=== PATIENT | male | born 1995 | race Caucasian/White ===

== ENCOUNTER 2020-08-24 15:34 | Inpatient (IN) | payer BC, SELFPAY ==
--- NOTE | ~2020-08-24 | CT_ITS ---
EXAMINATION: CT ABDOMEN AND PELVIS WITH CONTRAST CLINICAL INFORMATION: RLQ pain, r/o appy COMPARISON: None. TECHNIQUE: Multidetector volumetric imaging was performed from the superior aspect of the liver through the pubic symphysis following administration of 85 cc of Omnipaque 350 intravenous contrast Sagittal and coronal reformatted images were obtained on the technologist workstation.. This CT examination was performed using dose optimization techniques as appropriate, variously including the following: *Automated exposure control *Adjustment of mA and/or kV according to patient size (this includes techniques or standardized protocols for targeted exams where dose is matched to indication/reason for exam; i.e. extremities or head) *Use of iterative reconstruction technique DLP: 539 mGy-cm FINDINGS: LUNG BASES: The visualized lung bases are unremarkable. LIVER, GALLBLADDER, AND BILIARY TREE: The liver is normal in size, shape, and attenuation. No focal hepatic lesion or biliary ductal dilatation is present. The gallbladder is unremarkable with no evidence of radiopaque gallstones, gallbladder wall thickening, or obvious pericholecystic inflammatory changes. PANCREAS: Unremarkable. SPLEEN: Mildly enlarged measuring 13.6 in meters in length ADRENAL GLANDS: Unremarkable. KIDNEYS AND URETERS: The kidneys are normal in size, shape, and attenuation. No hydronephrosis, hydroureter, or calculi seen. No perinephric stranding. BLADDER: Unremarkable. GASTROINTESTINAL TRACT: Colon is mostly decompressed. There is significant focal inflammatory changes in the right lower quadrant surrounding a dilated appendix measuring up to 1.5 cm in diameter. There is associated edema at the appendiceal orifice as well. I do not appreciate any obvious appendicolith. There is significant surrounding fluid but none discrete tear. Perforated appendicitis would be suspected. ABDOMINAL WALL: No significant hernia is appreciated. LYMPHOVASCULAR STRUCTURES: No lymphadenopathy. The aorta is unremarkable. PELVIC VISCERA: Unremarkable. OSSEOUS STRUCTURES: Unremarkable. CT/CT abdomen pelvis w con IMPRESSION: Dilated appendix with significant surrounding inflammatory changes and fluid most consistent with acute appendicitis. With this amount of fluid, perforated appendicitis would be suspected. I do not appreciate any adjacent free air or obvious appendicolith.
[2020-08-24 15:46] VITALS: BP 150/101; PULSE 110; RESP 18; TEMP 36.8; O2SAT 98; BMI 25.7
[2020-08-24 16:20] LABS: MANUAL DIFF FLAG NO
[2020-08-24 16:22] LABS: Basophils Absolute Auto 0.1 X10*3/uL (0.0-0.2); Basophils Percent Auto 0.3 % (0-2); Eosinophils Percent Auto 0.1 % (0-4); Hematocrit 48.7 % (42-52); Hemoglobin 16.9 g/dl (14.0-18.0); Imm Gran Abs Auto 0.05 X10*3/uL (0.00-0.03); Imm Gran Pct Auto 0.3 % (0.0-0.4); Lymphocytes Absolute Auto 1.6 X10*3/uL (1.2-4.9); Lymphocytes Percent Auto 9.3 % (20-40); Mean Corpuscular HGB Conc 34.7 g/dl (31.0-36.0); Mean Corpuscular Hemoglobin 30.7 pg (27.0-33.0); Mean Corpuscular Volume 88.4 fL (80-98); Mean Platelet Volume 9.3 fL (9.4-12.4); Monocytes Absolute Auto 1.5 X10*3/uL (0.1-1.2); Monocytes Percent Auto 8.4 % (2-11); Neutrophils Absolute Auto 14.2 X10*3/uL (2.0-8.3); Neutrophils Percent Auto 81.6 % (45-73); Platelet Count 246 X10*3/uL (160-400); Red Blood Count 5.51 X10*6/uL (4.60-5.80); Red Cell Distribution Width 11.7 % (11.0-16.0); White Blood Count 17.4 X10*3/uL (4.8-10.8)
[2020-08-24 16:22] LABS: Appearance Urine CLEAR; Color Urine YELLOW; Glucose Urine UA NEG (NEG); Leukocyte Esterase Urine NEG (NEG); Nitrite Urine NEG (NEG); Specific Gravity - Urine 1.015 (1.005-1.025); Urine Blood NEG (NEG); Urine Ketones NEG (NEG); Urine Protein NEG (NEG-TRACE)
[2020-08-24 16:46] LABS: Alanine Aminotransferase 17 U/L (0-40); Albumin Level 4.8 g/dL (3.5-5.0); Alkaline Phosphatase 91 U/L (39-117); Anion Gap 16 (12-20); Aspartate Amino Transferase 16 U/L (5-37); Bilirubin Total 1.9 mg/dL (0.0-1.0); Blood Urea Nitrogen 12 mg/dL (9-16); Calcium 9.9 mg/dL (8.4-10.2); Carbon Dioxide 28 mmol/L (22-29); Chloride 99 mmol/L (96-108); Creatinine Clr Calc Pharmacy 118.1; Estimated Glomerular Filt Rate > 60; Glucose Random 107 mg/dL (60-115); Potassium 4.1 mmol/L (3.3-5.1); Sodium 139 mmol/L (135-145)
--- NOTE | 2020-08-24 18:27 | ED_ITS ---
HPI - Abdominal Pain General Chief Complaint: Abdominal Pain Stated Complaint: Abdominal pain Time Seen by Provider: 08/24/20 18:13 Source: patient Mode of arrival: ambulatory Limitations: no limitations History of Present Illness HPI narrative: 25-year-old male previously healthy here with right lower quadrant abdominal pain x3 days with vomiting and subjective fevers and chills. Last p.o. intake 14:00 (banana and water) Related Data Allergies Allergy/AdvReac Type Severity Reaction Status Date / Time No Known Allergies Allergy Verified 08/24/20 15:48 Review of Systems Review of Systems Yes all other systems are reviewed and are negative Constitutional: Reports no additional constitutional complaints, Denies body ache(s), Reports chills, Reports fever(s), Denies headache(s) and Denies weak ness Eyes: Reports no additional eye complaints and Denies change in vision Reports system reviewed and no additional complaints, except as documented, Denies dizziness, Denies headache(s), Denies nasal congestion, Denies nasal discharge and Denies neck pain Cardiovascular: Reports no additional cardiovascular complaints, Denies chest pain, Denies leg edema and Denies dyspnea Respiratory: Reports no additional respiratory complaints, Denies cough and Denies dyspnea Gastrointestinal: Reports no additional gastrointestinal complaints, Reports abdominal pain, Denies diarrhea, Reports nausea and Reports vomiting Genitourinary: Denies urinary incontinence Musculoskeletal: Reports no additional musculoskeletal complaints, Denies back pain, Denies arthralgias, Denies joint swelling, Denies neck pain, Denies numbness and Denies tingling Skin/Breast: Reports system reviewed and no additional complaints, except as docu and Denies rash Reports system reviewed and no additional complaints, except as documented, Denies Abnormal speech present, Denies dizziness, Denies headache(s), Denies numbness, Denies tingling and Denies weakness Physical Exam Vital Signs: Vital Signs: Last Vital Signs Temp 98.3 F 08/24/20 15:46 Pulse 98 08/24/20 19:31 Resp 16 08/24/20 19:31 BP 140/84 H 08/24/20 19:31 Pulse Ox 97 08/24/20 19:31 Body Mass Index 25.7 Const: General: cooperative, healthy appearing, comfortable and no acute distress Orientation/consciousness: patient oriented x3 Limitations: no limitations HENMT: Head: Yes normal to inspection Ears: hearing grossly normal bilaterally General nose exam: Normal external nose present Face and sin us: Yes normal facial exam Mouth: Normal oral and palatal mucosa present Throat: Yes posterior oropharynx normal Eyes: General: appearance normal, both eyes and all related structures Pupils: Equal, round and reactive pupils present Neck: Neck: Yes normal visual inspection Chest: Chest palpation & inspection: normal inspection of the chest Resp: Effort & Inspection: normal respiratory effort Auscultation: clear to auscultation bilaterally Cardio: Rate: regular rate Rhythm: regular rhythm Peripheral pulses: Peripheral pulses 2+ throughout GI: Inspection: Yes normal to inspection Palpation (GI): Soft to palpation and Tenderness to palpation present (GI) (Moderate tenderness in the RLQ with rebound/guarding) Auscultation: normal bowel sounds Back/Spine/Pelvis: Thoracic/Lumbar Spine: thoracic and lumbar spine normal to inspection Skin: General skin exam: no rashes or lesions noted Neuro: General: patient oriented x3, no focal motor deficits and normal sensation to monofilament Cranial nerves: Yes Equal, round and reactive pupil s present Cognition (Neuro): normal cognition Speech: No Abnormal speech present Gait exam (Neuro): Normal gait present Motor exam (neuro): 5/5 motor strength present throughout Extrem: General: Yes normal to inspection, Yes no pedal edema and Yes no calf tenderness Course Course Course Narrative: 25 year old male here with right lower quadrant abdominal pain with vomiting, subjective fevers, chills. On exam has tenderness with rebound guarding. Labs show a leukocytosis with a shift. Patient will need CT a/P to rule out acute appendicitis. PIV, NSB, antiemetic and analgesia. 1944-CT shows dilated appendix with significant surrounding inflammatory changes and fluid most consistent with acute appendicitis. With this amount of fluid perforated appendicitis would be suspected. Discussed patient with Dr. Vitale. Plan for admission. Patient may drink clear liquids tonight, NPO after midnight. At this time infection is suspected. Antibiotics ordered. MDM - Abdominal Pain Differential Diagnosis Differential diagnosis: Likely acute appendicitis and calculus of kidney Medical Records Attestation: I reviewed the patient's medical records. Lab Data Attestation: I reviewed the patient's lab results. Result diagrams: 08/24/20 16:11 08/24/20 16:11 Labs: Lab Results 05/11/21 05/11/21 05/11/21 Range/Units 16:11 16:11 16:11 WBC 17.4 H (4.8-10.8) X10*3/uL RBC 5.51 (4.60-5.80) X10*6/uL Hgb 16.9 (14.0-18.0) g/dl Hct 48.7 (42-52) % MCV 88.4 (80-98) fL MCH 30.7 (27.0-33.0) pg MCHC 34.7 (31.0-36.0) g/dl RDW 11.7 (11.0-16.0) % Plt Count 246 (160-400) X10*3/uL MPV 9.3 L (9.4-12.4) fL Immature Gran % (Auto) 0.3 (0.0-0.4) % Neut % (Auto) 81.6 H (45-73) % Lymph % (Auto) 9.3 L (20-40) % [place] % (Auto) 8.4 (2-11) % Eos % (Auto) 0.1 (0-4) % Baso % (Auto) 0.3 (0-2) % Lymph # (Auto) 1.6 (1.2-4.9) X10*3/uL [place] # (Auto) 1.5 H (0.1-1.2) X10*3/uL Eos # (Auto) 0.0 (0.0-0.4) X10*3/uL Baso # (Auto) 0.1 (0.0-0.2) X10*3/uL Abs Immat Gran (auto) 0.05 H (0.00-0.03) X10*3/uL Absolute Neuts (auto) 14.2 H (2.0-8.3) X10*3/uL Absolute Nucleated RBC 0.000 (0.0-0.012) X10*3/uL Nucleated RBC % (auto) 0.0 (0.0-0.2) /100WBC Hold Blue Top SEE NOTE Sodium 139 (135-145) mmol/L Potassium 4.1 (3.3-5.1) mmol/L Chloride 99 (96-108) mmol/L Carbon Dioxide 28 (22-29) mmol/L Anion Gap 16 (12-20) BUN 12 (9-16) mg/dL Creatinine 1.00 (0.5-1.4) mg/dL Estim Creat Clear Calc 118.1 Estimated GFR > 60 Random Glucose 107 (60-115) mg/dL Lactic Acid (0.5-2.0) mmol/L Calcium 9.9 (8.4-10.2) mg/dL Total Bilirubin 1.9 H (0.0-1.0) mg/dL AST 16 (5-37) U/L ALT 17 (0-40) U/L Alkaline Phosphatase 91 (39-117) U/L Total Protein 8.0 (6.5-8.0) g/dL Albumin 4.8 (3.5-5.0) g/dL Urine Color Urine Appearance Urine pH (5.0-8.0) Ur Specific [place] (1.005-1.025) Urine Protein (NEG-TRACE) MG/DL Urine Glucose (UA) (NEG) MG/DL Urine Ketones (NEG) MG/DL Urine Blood (NEG) Urine Nitrite (NEG) Ur Leukocyte Esterase (NEG) 08/24/20 08/24/20 Range/Units 16:12 18:46 WBC (4.8-10.8) X10*3/uL RBC (4.60-5.80) X10*6/uL Hgb (14.0-18.0) g/dl Hct (42-52) % MCV (80-98) fL MCH (27.0-33.0) pg MCHC (31.0-36.0) g/dl RDW (11.0-16.0) % Plt Count (160-400) X10*3/uL MPV (9.4-12.4) fL Immature Gran % (Auto) (0.0-0.4) % Neut % (Auto) (45-73) % Lymph % (Auto) (20-40) % [place] % (Auto) (2-11) % Eos % (Auto) (0-4) % Baso % (Auto) (0-2) % Lymph # (Auto) (1.2-4.9) X10*3/uL [place] # (Auto) (0.1-1.2) X10*3/uL Eos # (Auto) (0.0-0.4) X10*3/uL Baso # (Auto) (0.0-0.2) X10*3/uL Abs Immat Gran (auto) (0.00-0.03) X10*3/uL Absolute Neuts (auto) (2.0-8.3) X10*3/uL Absolute Nucleated RBC (0.0-0.012) X10*3/uL Nucleated RBC % (auto) (0.0-0.2) /100WBC Hold Blue Top Sodium (135-145) mmol/L Potassium (3.3-5.1) mmol/L Chloride (96-108) mmol/L Carbon Dioxide (22-29) mmol/L Anion Gap (12-20) BUN (9-16) mg/dL Creatinine (0.5-1.4) mg/dL Estim Creat Clear Calc Estimated GFR Random Glucose (60-115) mg/dL Lactic Acid 0.9 (0.5-2.0) mmol/L Calcium (8.4-10.2) mg/dL Total Bilirubin (0.0-1.0) mg/dL AST (5-37) U/L ALT (0-40) U/L Alkaline Phosphatase (39-117) U/L Total Protein (6.5-8.0) g/dL Albumin (3.5-5.0) g/dL Urine Color YELLOW Urine Appearance CLEAR Urine pH 6.0 (5.0-8.0) Ur Specific [place] 1.015 (1.005-1.025) Urine Protein NEG (NEG-TRACE) MG/DL Urine Glucose (UA) NEG (NEG) MG/DL Urine Ketones NEG (NEG) MG/DL Urine Blood NEG (NEG) Urine Nitrite NEG (NEG) Ur Leukocyte Esterase NEG (NEG) Imaging Data CT scan - abdomen: Attestation: I personally reviewed and interpreted this imaging study as follows: Radiologist's impression: Dilated appendix with significant surrounding inflammatory changes and fluid most consistent with acute appendicitis. With this amount of fluid, perforated appendicitis would be suspected. I do not appreciate any adjacent free air or obvious appendicolith. Discharge Plan Discharge Clinical Impression: Acute appendicitis, Leukocytosis Patient Disposition: Admitted As Inpatient [facility] Past Medical History Attestation statement: The following information was validated with the patient. Source: old records reviewed and nursing notes reviewed Medical History No known health problems Social History Social History Advance Directives: No Advance Directives Information Provided: Yes
[2020-08-24] MEDS: iohexoL 350 MG/ML 100 ML INFUS..BTL IV (19:14)
[2020-08-24 19:17] LABS: Lactic Acid 0.9 mmol/L (0.5-2.0)
[2020-08-24] MEDS: 0.9 % Sodium Chloride 1,000 ML 999 ML IV (19:22)
[2020-08-24] MEDS: ondansetron HCL 4 MG/2 ML VIAL IVPUSH (19:22)
[2020-08-24] MEDS: Morphine Sulfate 4 MG/ML CARTRIDGE IVPUSH (19:22)
[2020-08-24 19:31] VITALS: BP 140/84; PULSE 98; RESP 16; O2SAT 97
[2020-08-24] MEDS: Piperacillin Sodium/Tazobactam 3.375 GM in 0.9 % Sodium Chloride 50 ML IV (20:18)
--- NOTE | 2020-08-24 20:22 | PM.HPGS ---
History of Present Illness History of Present Illness Date of Service: 08/27/20 Chief complaint: Acute appendicitis Narrative: Chavo Rebollar is a 25 year old male who came to the ED tonight because of RLQ pain. He says this stared about 2 days ago. He says he though this was just hunger pains , but this persisted and was near constant. He says he ahd a big meal last night and had an episode of more severe pain. He says he vomitted once during that episode which relieved his severe pain. He however had persistent low intensitiy pain on the right lower quadrant all day today so he came to the ED. He deneis any fever or chills although he sys he thought he ahd cold sweats last night when he was nauseous. Review of Systems Constitutional: Constitutional: Denies chills and Denies fever(s) Cardiovascular: Cardiovascular: Denies chest pain, Denies dyspnea and Denies dyspnea on exertion Respiratory: Respiratory: Denies cough, Denies dyspnea and Denies dyspnea on exertion Gastrointestinal: Gastrointestinal: Denies hematochezia, Denies change in bowel habits and Denies diarrhea Genitourinary: Genitourinary: Denies hematuria and Denies difficulty urinating Musculoskeletal: Musculoskeletal: Denies back pain and Denies limited range of motion Neurologic: Denies focal weakness and Denies convulsions Psychiatric: Psychiatric: Denies depression and Denies mood swings PMFSH Past Medical History Medical History No known health problems Social History Social History Household Members: None Housing: House Do you presently have visiting nurse or other home services: No Smoking Status: Never smoker Substance Use Type: Marijuana Meds Allergies Allergy/AdvReac Type Severity Reaction Status Date / Time succinylcholine AdvReac Unknown Verified 08/25/20 12:19 Physical Exam Vital Signs: Vital Signs: Last Vital Signs Temp 98.3 F 08/24/20 15:46 Pulse 98 08/24/20 19:31 Resp 16 08/24/20 19:31 BP 140/84 H 08/24/20 19:31 Pulse Ox 97 08/24/20 19:31 Body Mass Index 25.7 Const: Other: looks well General: comfortable and no acute distress Orientation/consciousness: patient oriented x3 Neck: Neck: Yes no lymphadenopathy Resp: Auscultation: clear to auscultation bilaterally Cardio: Rhythm: regular rhythm GI: Other: tender on the RLQ and right lower flank areas with no rebound or guarding Palpation (GI): Soft to palpation and no guarding Neuro: General: patient oriented x3 Results Results Labs: Short CBC 08/24/20 Range/Units 16:11 WBC 17.4 H (4.8-10.8) X10*3/uL Hgb 16.9 (14.0-18.0) g/dl Hct 48.7 (42-52) % Plt Count 246 (160-400) X10*3/uL BMP 08/24/20 16:11 Sodium 139 Potassium 4.1 Chloride 99 Carbon Dioxide 28 BUN 12 Creatinine 1.00 Calcium 9.9 Liver Function 08/24/20 Range/Units 16:11 Total Bilirubin 1.9 H (0.0-1.0) mg/dL AST 16 (5-37) U/L ALT 17 (0-40) U/L Alkaline Phosphatase 91 (39-117) U/L Albumin 4.8 (3.5-5.0) g/dL Urine 08/24/20 Range/Units 16:12 Urine Color YELLOW Urine Appearance CLEAR Urine pH 6.0 (5.0-8.0) Ur Specific [place] 1.015 (1.005-1.025) Urine Protein NEG (NEG-TRACE) MG/DL Urine Glucose (UA) NEG (NEG) MG/DL Assessment and Plan (1) Acute appendicitis: Status: Acute He came in for a 2-day hx of RLQ pain. I have reviewed his CT scan and there is note of marked inflammtory changes around the appendix with dilatation of the appendix itself c/w acute appendicitis. There is no fecalith. He does not have peritoneal signs at this time and does not appear septic and as a matter of fact says he was hungry. His lactate is normal. His total bilirubin is slightly elevated but this may be due to ongoing infection, as there is no suggestive of gallblader disease/biliary obstruction on CT. I will admit him and start him on IV abx to allow the inflammatory changes to cool down some. In absence of a fecalith, this is more likely to repsond to IV abx. I told him that we will reevaluate him in the morning early and if there is no clinically improvement, we will proceed with appendectomy. I explained to hm the technique of laparoscopic appendectomy and possible open appendectomy. I reviewed with him extensively the risks, including but not limited to bleeding, infections, bowel injury, staple line leak, possible need for resection of part of the colon, injury to the urinary tract, obstruction intraabdominal abscess, as well as the benefits and alternatives. He understands that these risks may be higher than average in view of the amount of inflammatory changes in the area. He understands the above plan and agrees. His mom was with him during the discussion.
[2020-08-24 20:46] LABS: COVID-19 Test Negative (Negative)
[2020-08-24 21:17] VITALS: BP 124/79; PULSE 93; RESP 18; TEMP 37.4; O2SAT 98
[2020-08-24 21:30] VITALS: BP 133/79; PULSE 73; RESP 20; TEMP 36.3; O2SAT 98
[2020-08-24] MEDS: Acetaminophen 325 MG TABLET 650 MG PO (21:56)
[2020-08-24] MEDS: 0.9 % Sodium Chloride Flush 3 ML SYRINGE IVFLUSH (21:57)
[2020-08-24] MEDS: Lactated Ringers 1,000 ML 125 ML IVCONT (21:57)
[2020-08-24] MEDS: Morphine Sulfate 4 MG/ML CARTRIDGE 3 MG IVPUSH (23:17)
[2020-08-24 23:51] VITALS: BP 123/80; PULSE 70; RESP 20; TEMP 36.3; O2SAT 98
[2020-08-25] VITALS (13 sets, daily range): BP systolic 117–150; BP diastolic 46–92; PULSE 67–91; RESP 16–20; TEMP 36.4–38.1; O2SAT 93–99; BMI 25.7
[2020-08-25] MEDS: Piperacillin Sodium/Tazobactam 3.375 GM in 0.9 % Sodium Chloride 50 ML IV ×4 (03:19→21:06)
[2020-08-25] MEDS: Morphine Sulfate 4 MG/ML CARTRIDGE 3 MG IVPUSH ×3 (04:56→19:18)
[2020-08-25] MEDS: Lactated Ringers 1,000 ML 125 ML IVCONT (06:16)
[2020-08-25 06:48] LABS: Hematocrit 41.4 % (42-52); Hemoglobin 14.2 g/dl (14.0-18.0); Mean Corpuscular HGB Conc 34.3 g/dl (31.0-36.0); Mean Corpuscular Hemoglobin 30.8 pg (27.0-33.0); Mean Corpuscular Volume 89.8 fL (80-98); Mean Platelet Volume 9.8 fL (9.4-12.4); Platelet Count 219 X10*3/uL (160-400); Red Blood Count 4.61 X10*6/uL (4.60-5.80); Red Cell Distribution Width 11.7 % (11.0-16.0); White Blood Count 12.1 X10*3/uL (4.8-10.8)
[2020-08-25 07:32] LABS: Alanine Aminotransferase 15 U/L (0-40); Albumin Level 3.9 g/dL (3.5-5.0); Alkaline Phosphatase 76 U/L (39-117); Anion Gap 14 (12-20); Aspartate Amino Transferase 12 U/L (5-37); Bilirubin Direct 0.8 mg/dL (0.0-0.5); Bilirubin Total 1.3 mg/dL (0.0-1.0); Blood Urea Nitrogen 9 mg/dL (9-16); Calcium 8.9 mg/dL (8.4-10.2); Carbon Dioxide 29 mmol/L (22-29); Chloride 102 mmol/L (96-108); Estimated Glomerular Filt Rate > 60; Glucose Random 91 mg/dL (60-115); Potassium 3.8 mmol/L (3.3-5.1); Sodium 141 mmol/L (135-145); Total Protein 6.3 g/dL (6.5-8.0)
[2020-08-25] MEDS: ondansetron HCL 4 MG/2 ML VIAL IVPUSH (09:32)
--- NOTE | 2020-08-25 10:03 | PM.PNGS ---
Subjective Subjective Date of Service: 08/25/20 Interval history: He says he feels ?okay? Still has a constant low-grade pain in the right upper quadrant and lower right flank area He says this seems to be unchanged. No fever, no fever or vomiting Physical Exam Vital Signs: Vital Signs: Last Vital Signs Temp 98.3 F 08/25/20 08:29 Pulse 74 08/25/20 08:29 Resp 18 08/25/20 08:29 BP 128/82 08/25/20 08:29 Pulse Ox 99 08/25/20 08:29 Body Mass Index 25.7 Chemistry 08/24/20 08/25/20 16:11 05:56 Sodium 139 141 Potassium 4.1 3.8 Carbon Dioxide 28 29 BUN 12 9 Creatinine 1.00 0.85 Calcium 9.9 8.9 D Hematology 08/24/20 08/25/20 16:11 05:56 WBC 17.4 H 12.1 H Hgb 16.9 14.2 Plt Count 246 219 Urinalysis 08/24/20 16:12 Urine Color YELLOW Urine Appearance CLEAR Urine pH 6.0 Ur Specific Gravit y 1.015 Urine Protein NEG Urine Glucose (UA) NEG Urine Ketones NEG Urine Blood NEG Urine Nitrite NEG Ur Leukocyte Donna ase NEG Const: Other: Looks well General: comfortable and no acute distress Resp: Effort & Inspection: normal respiratory effort Cardio: Rate: regular rate GI: Other: Soft, nondistended, no guarding, he does have direct tenderness on right lower quadrant and right flank area Progress Note: A&P Assessment and plan (1) Acute appendicitis: Status: Acute Assessment and Plan: I have reviewed his CAT scan with the radiologist Dr. Hurt. There was note of significant inflammatory changes in the mid portion of the appendix all the way distally towards the tip. There was note of fluid around this. The base appears to be minimally inflamed if at all. His white count has improved. He remains tender however and he wants to proceed with appendectomy. Again, I reviewed with him the technique of laparoscopic appendectomy and possible open appendectomy. Discussed the risks including but not limited to bleeding, infections, bowel injury, injury to the urinary tract, need for resection of part of the colon, as well as benefits alternatives and has given consent. Fall Risk Details Current Medications: Current Medications Generic Name Dose Route Start Last Admin Trade Name Freq PRN Reason Stop Dose Admin Acetaminophen 650 mg 08/24/20 21:38 08/24/20 21:56 Acetaminophen 325 Mg Tablet PO 650 mg Q6H PRN Administration Fever Piperacillin Sod/Tazobactam 50 mls @ 100 mls/hr 08/25/20 03:00 08/25/20 09:01 Sod 3.375 gm/ Sodium Chloride IV Infused Q6H JAY Infusion Lactated Ringer's 1,000 mls @ 125 mls/hr 08/24/20 21:00 08/25/20 06:16 Lr IVCONT 125 mls/hr .Q8H JAY Administration Morphine Sulfate 3 mg 08/24/20 20:45 08/25/20 09:32 Morphine Sulfate 4 Mg/Ml Cartridge IVPUSH 3 mg Q3H PRN Administration Pain, Severe (Pain Scale 7-10) Ondansetron HCl 4 mg 08/24/20 20:45 08/25/20 09:32 Ondansetron Hcl 4 Mg/2 Ml Vial IVPUSH 4 mg Q8H PRN Administration nausea Sodium Chloride 3 ml 08/25/20 00:00 08/25/20 07:14 0.9 % Sodium Chloride Flush 3 Ml Syringe IVFLUSH Not Given QSHIFT JAY Time Spent With Patient Time: Total time spent is greater than 50% in coordination of care (as documented) at patient's floor/unit and/or counseling patient: Time with patient: 15 - 24 minutes
--- NOTE | 2020-08-25 12:19 | P.CONAN_ITS ---
[facility] Active Problems Active Problems: All Active Problems (Updated 08/24/20 @ 19:57 by Sue johnson NP) Acute appendicitis (Acute) Leukocytosis (Acute) Past Medical History Medical History No known health problems Social History Social History Household Members: None Housing: House Do you presently have visiting nurse or other home services: No Smoking Status: Never smoker Use of substances other than those prescribed or required for medical reasons: Yes Substance Use Type: Marijuana Substance Use Frequency: Socially Last Used Substance: Days (ago) Currently Displaying Signs/Symptoms of Drug Intoxication Withdrawal: No Any prior treatment program specific to substance use: No Have you been hit, kicked, punched, or otherwise hurt by someone within the past year? If so, by whom?: No Do you feel safe in your current relationship?: No Current Relationship Is there a partner from a previous relationship who is making you feel unsafe now?: No Are you made to feel afraid or neglected: No Are you DNR?: No Advance Directives: No Advance Directives Information Provided: Yes Do you have thoughts of harming others: None Do you have a plan to hurt others: No Plan Recently lost weight without trying: No How much weight loss: Not applicable Eating poorly because of decreased appetite: No Nutrition screen score: 0 Nutrition Risks: No Nutritional Risk Poor oral hygiene: No Meds Allergies Allergy/AdvReac Type Severity Reaction Status Date / Time succinylcholine AdvReac Unknown Verified 08/25/20 12:19 Active Medications: Current Medications Generic Name Dose Route Start Last Admin Trade Name Freq PRN Reason Stop Dose Admin Acetaminophen 650 mg 08/24/20 21:38 08/24/20 21:56 Acetaminophen 325 Mg Tablet PO 650 mg Q6H PRN Administration Fever Piperacillin Sod/Tazobactam 50 mls @ 100 mls/hr 08/25/20 03:00 08/25/20 09:01 Sod 3.375 gm/ Sodium Chloride IV Infused Q6H JAY Infusion Lactated Ringer's 1,000 mls @ 125 mls/hr 08/24/20 21:00 08/25/20 06:16 Lr IVCONT 125 mls/hr .Q8H JAY Administration Morphine Sulfate 3 mg 08/24/20 20:45 08/25/20 09:32 Morphine Sulfate 4 Mg/Ml Cartridge IVPUSH 3 mg Q3H PRN Administration Pain, Severe (Pain Scale 7-10) Ondansetron HCl 4 mg 08/24/20 20:45 08/25/20 09:32 Ondansetron Hcl 4 Mg/2 Ml Vial IVPUSH 4 mg Q8H PRN Administration nausea Sodium Chloride 3 ml 08/25/20 00:00 08/25/20 07:14 0.9 % Sodium Chloride Flush 3 Ml [facility] Ex[facility] Exam Date and Time: August 25, 2020 1219 Height,Weight and Vital Signs: Height 5 ft 11 in Weight 83.915 kg Last Vital Signs Temp 98.2 F 08/25/20 11:07 Pulse 88 08/25/20 11:07 Resp 18 08/25/20 11:07 BP 149/92 H 08/25/20 11:07 Pulse Ox 98 08/25/20 11:07 Pertinent Lab Results Pertinent Lab Results: Laboratory Tests 08/24/20 08/24/20 08/24/20 16:11 16:11 16:11 WBC 17.4 H RBC 5.51 Hgb 16.9 Hct 48.7 MCV 88.4 MCH 30.7 MCHC 34.7 RDW 11.7 Plt Count 246 MPV 9.3 L Immature Gran % (Auto) 0.3 Neut % (Auto) 81.6 H Lymph % (Auto) 9.3 L Power % (Auto) 8.4 Eos % (Auto) 0.1 Baso % (Auto) 0.3 Lymph # (Auto) 1.6 Power # (Auto) 1.5 H Eos # (Auto) 0.0 Baso # (Auto) 0.1 Abs Immat Gran (auto) 0.05 H Absolute Neuts (auto) 14.2 H Absolute Nucleated RBC 0.000 Nucleated RBC % (auto) 0.0 Hold Blue Top SEE NOTE Sodium 139 Potassium 4.1 Chloride 99 Carbon Dioxide 28 Anion Gap 16 BUN 12 Creatinine 1.00 Estim Creat Clear Calc 118.1 Estimated GFR > 60 Random Glucose 107 Lactic Acid Calcium 9.9 Total Bilirubin 1.9 H Direct Bilirubin AST 16 ALT 17 Alkaline Phosphatase 91 Total Protein 8.0 Albumin 4.8 Urine Color Urine Appearance Urine pH Ur Specific [place] Urine Protein Urine Glucose (UA) Urine Ketones Urine Blood Urine Nitrite Ur Leukocyte Esterase COVID-19 ([facility]) COVID-19 Clin Com 08/24/20 08/24/20 08/24/20 16:12 18:46 20:19 WBC RBC Hgb Hct MCV MCH MCHC RDW Plt Count MPV Immature Gran % (Auto) Neut % (Auto) Lymph % (Auto) Power % (Auto) Eos % (Auto) Baso % (Auto) Lymph # (Auto) Power # (Auto) Eos # (Auto) Baso # (Auto) Abs Immat Gran (auto) Absolute Neuts (auto) Absolute Nucleated RBC Nucleated RBC % (auto) Hold Blue Top Sodium Potassium Chloride Carbon Dioxide Anion Gap BUN Creatinine Estim Creat Clear Calc Estimated GFR Random Glucose Lactic Acid 0.9 Calcium Total Bilirubin Direct Bilirubin AST ALT Alkaline Phosphatase Total Protein Albumin Urine Color YELLOW Urine Appearance CLEAR Urine pH 6.0 Ur Specific [place] 1.015 Urine Protein NEG Urine Glucose (UA) NEG Urine Ketones NEG Urine Blood NEG Urine Nitrite NEG Ur Leukocyte Esterase NEG COVID-19 ([facility]) Negative COVID-19 Clin Com See Note 08/25/20 08/25/20 05:56 05:56 WBC 12.1 H RBC 4.61 Hgb 14.2 Hct 41.4 L MCV 89.8 MCH 30.8 MCHC 34.3 RDW 11.7 Plt Count 219 MPV 9.8 Immature Gran % (Auto) Neut % (Auto) Lymph % (Auto) Power % (Auto) Eos % (Auto) Baso % (Auto) Lymph # (Auto) Power # (Auto) Eos # (Auto) Baso # (Auto) Abs Immat Gran (auto) Absolute Neuts (auto) Absolute Nucleated RBC 0.000 Nucleated RBC % (auto) 0.0 Hold Blue Top Sodium 141 Potassium 3.8 Chloride 102 Carbon Dioxide 29 Anion Gap 14 BUN 9 Creatinine 0.85 Estim Creat Clear Calc 139.0 Estimated GFR > 60 Random Glucose 91 Lactic Acid Calcium 8.9 D Total Bilirubin 1.3 H Direct Bilirubin 0.8 H AST 12 ALT 15 Alkaline Phosphatase 76 Total Protein 6.3 L D Albumin 3.9 Urine Color Urine Appearance Urine pH Ur Specific [place] Urine Protein Urine Glucose (UA) Urine Ketones Urine Blood Urine Nitrite Ur Leukocyte Esterase COVID-19 ([facility]) COVID-19 Clin Com Airway Mallampati Class: I TM Dist: >3cm Neck ROM: Full Heart: RRR Lungs: CTA Assessment and Plan Assessment Anesthesia Assessment: Anesthesia Plan Discussed and Chart Reviewed Final Anesthetic Review NPO: Yes ASA Class: I Final Preanesthetic Review: No Changes in Pt Med Stat and Consent Obtained/Reviewed Patient Risk: Intermediate Procedure Risk: Intermediate Anesthetic Plan Anesthetic Plan: GA Disposition: Standard PACU
--- NOTE | 2020-08-25 12:34 | PC.NURSE ---
cellphone in the floor chart enclosed in the binders
--- NOTE | 2020-08-25 12:49 | MHC.CM.PN ---
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 he was admitted for acute appendicitis and will be having surgery today . explained the role of the nurse critical care paramedic in the transition from the hospital to home , educated about the importance of having a health care proxy, patient is active , indepedent in all adls and movbility he has no vna /no dme services discharge plan home no services pcp has none educated about the importance of having a pcp and gave jourdan the [facility] paperwork for him to review will need note to return to work transp family
--- NOTE | 2020-08-25 14:09 | P.OP_ITS ---
Operative Note Operative Note Date of Service: 08/25/20 Narrative: Preop diagnosis: Acute appendicitis Postop diagnosis: Acute appendicitis with suppuration and induration of the distal 2/3 of the appendix, with dense inflammatory changes along with adhesions surrounding appendix Procedure: Laparoscopic appendectomy Surgeon: Rhett Vitale No emergency medicine physician assistant The patient is a 25-year-old male was admitted last night because of right lower quadrant pain and tenderness. I have reviewed this with the radiologist and this had shown induration, inflammatory changes in the distal 2/3 of the appendix with a lot of stranding around the area. He was given antibiotics overnight. He understood the technique of laparoscopic appendectomy and he was understood the risks, benefits, and alternatives and had given consent and wanted to proceed. He was brought to the operating room placed supine on table under general anesthesia via endotracheal tube. The abdomen was prepped and draped in the usual sterile fashion. A surgical time-out was done. The patient received cefazolin Cefotan 2 g IV preoperatively. I made a short incision in the supraumbilical margin using a blade 15. This was carried down to full-thickness of the skin and subcutaneous fat down to the fascia. The fascia was incised. The peritoneum was entered and through this incision a Desmond port was introduced. Pneumoperitoneum was introduced to a pressure of 15 mm hg. From here on the rest of procedure was done under vision with the laparoscope. A 5/12 mm port was introduced through a small incision in the left lower quadrant. A 5 port was introduced through the suprapubic margin via a small stab incision. These were used for working ports and graspers were applied. The patient was placed in head-down and [id number] position. I reflected the omentum away from the right lower quadrant and pelvis. I reflected some of the small bowel loops until I could see that cecum. There is note of adherent bowel which appeared to be the terminal ileum and the pelvic sidewall. I carefully released this with the use of the tip of the agile coach as well as with scissors laparoscopically. I was able to release the omentum and adherent small bowel from the pelvic sidewall and I could see what appeared to be the cecum with a lot of inflammatory changes inferior to this. I had to mobilize part of the cecum by carefully dividing attachments to this this bluntly as well as sharply with laparoscopic scissors. By doing so was able to achieve some mobilization the cecum and the terminal ileum and I was able to visualize a markedly thickened, indurated diet and dilated appendix which was curled up on itself . I to carefully applied a grasper on the mid partt of the appendix and by doing this a little bit of retraction was achieved to allow some blunt dissection to release the densely adherent inflammatory tissue surrounding this. I was able to eventually release the entire length of the appendix. I was able to see the base and this appeared to be viable with minimal inflammatory changes. The mesoappendix was markedly thickened and indurated. The distal 2/3 was again very indurated and inflamed I was able to clearly visualize the base of the appendix. I used the [place] dissector to separate the mesoappendix at the base. I position Endo-FLORENTIN 30 mm stapler across the base and this was fired and the appendix was transected. I used the LigaSure to divide the very indurated mesoappendix. We had to apply the LigaSure at ends of the mesoappendix because of some bleeding but eventually was able to achieve good control. I retrieved the appendix through an endobag through the left lower quadrant incision. I reinserted all ports and re-insufflated. I reviewed a to the area of dissection in the right lower quadrant. I observed for hemostasis. I examined all 4 quadrants for any evidence of a bowel injury but there was no gross signs of any of these. I did irrigation again and suctioned the irrigant fluid. I observed the peritoneum laparoscopically and confirmed good hemostasis. I proceeded to desufflate through the port sites. I position the omentum to cover the right lower quadrant and the area of the dissection prior to desufflation. I then removed all ports. I closed the fascia of the umbilical incision with a figure-eight Dexon 0 stitch. Skin closure was achieved with subcuticular running Dexon 4-0 sutures. Steri-Strips and dressings were applied. All incisions were infiltrated with Marcaine 0.5% for postop analgesia and the procedure was completed. The patient tolerated the procedure well. Initial and final counts of sponges and instruments were correct. Estimated blood loss was about cc. The patient was extubated without difficulty and transferred to recovery room with stable vital signs.
[2020-08-25] MEDS: Acetaminophen 325 MG TABLET 650 MG PO ×2 (15:02→21:51)
[2020-08-25] MEDS: oxyCODONE HCl Immed Release 5 MG TABLET PO (15:02)
[2020-08-25] MEDS: fentaNYL citrate/PF 100 MCG/2 ML VIAL 50 MCG IVPUSH ×2 (15:03→15:27)
--- NOTE | 2020-08-25 16:51 | P.BOP_ITS ---
Brief Operative Note Date of Service: 08/25/20 Pre-op diagnosis: acute appendicitis Post-op diagnosis: same Procedure: lap appendectomy Surgeon: Rhett Vitale MD Anesthesia: GETA Was an Industrial Maintenance Technician used for this Procedure?: No Estimated blood loss (mL): 50 Pathology: other (appendix) Condition: stable Disposition: PACU
--- NOTE | 2020-08-25 17:12 | PM.EVENT ---
Event Note Date of Service: 08/25/20 Event Note: Seen postop Underwent laparoscopic appendectomy earlier Good pain control Looks well Abdomen soft Stable vital signs Pain management Clear liquids today Likely DC home tomorrow
[2020-08-25] MEDS: oxyCODONE HCl Immed Release 5 MG TABLET 10 MG PO (21:51)
[2020-08-25] MEDS: 0.9 % Sodium Chloride Flush 3 ML SYRINGE IVFLUSH (21:53)
[2020-08-26] VITALS: BP 113/66; PULSE 69; RESP 20; TEMP 36.7; O2SAT 96
[2020-08-26] MEDS: Lactated Ringers 1,000 ML 80 ML IVCONT (00:31)
[2020-08-26 03:13] VITALS: BP 107/58; PULSE 61; RESP 20; TEMP 36.9; O2SAT 97
[2020-08-26] MEDS: Piperacillin Sodium/Tazobactam 3.375 GM in 0.9 % Sodium Chloride 50 ML IV ×2 (03:14→08:15)
[2020-08-26] MEDS: Morphine Sulfate 4 MG/ML CARTRIDGE 3 MG IVPUSH ×2 (03:57→10:07)
[2020-08-26] MEDS: oxyCODONE HCl Immed Release 5 MG TABLET 10 MG PO (07:21)
[2020-08-26 08:00] VITALS: BP 127/66; PULSE 79; RESP 16; TEMP 36.8; O2SAT 97
--- NOTE | 2020-08-26 08:13 | HO.POSTANES ---
Post Anesthesia Evaluation Post Anesthesia Evaluation Vital Signs: Vital Signs Temp Pulse Resp BP Pulse Ox 08/26/20 03:13 98.4 F 61 20 107/58 L 97 08/26/20 00:00 98.0 F 69 20 113/66 96 Anesthesia: General Endotracheal-GETA Mental Status: Awake Pain Control: Satisfactory Nausea/Vomiting: None Hydration: Adequate Anesthesia-Related Issues: No Anes. Related Issues
--- NOTE | 2020-08-26 08:16 | PM.PNGS ---
Subjective Subjective Date of Service: 08/26/20 Interval history: Feels well today Sore at incisions Otherwise says he had a good night Physical Exam Vital Signs: Vital Signs: Last Vital Signs Temp 98.3 F 08/26/20 08:00 Pulse 79 08/26/20 08:00 Resp 16 08/26/20 08:00 BP 127/66 08/26/20 08:00 Pulse Ox 97 08/26/20 08:00 Body Mass Index 25.7 Const: Other: Looks well General: comfortable and no acute distress Resp: Effort & Inspection: normal respiratory effort Cardio: Rate: regular rate GI: Other: Dressings dry Palpation (GI): Soft to palpation, not firm and no guarding Progress Note: A&P Assessment and plan (1) Acute appendicitis: Status: Acute Assessment and Plan: Status post laparoscopic appendectomy Doing well clinically Advance diet Likely home this afternoon Discussed wound care and discharge instructions with the patient Follow-up in the office Fall Risk Details Current Medications: Current Medications Generic Name Dose Route Start Last Admin Trade Name Freq PRN Reason Stop Dose Admin Acetaminophen 650 mg 08/24/20 21:38 08/25/20 21:51 Acetaminophen 325 Mg Tablet PO 650 mg Q6H PRN Administration Fever Fentanyl 50 mcg 08/25/20 12:18 08/25/20 15:27 Fentanyl Citrate/Pf 100 Mcg/2 Ml Vial IVPUSH 50 mcg Q5M PRN Administration Pain, Severe (Pain Scale 7-10) Piperacillin Sod/Tazobactam 50 mls @ 100 mls/hr 08/25/20 03:00 08/26/20 03:59 Sod 3.375 gm/ Sodium Chloride IV Infused Q6H JAY Infusion Lactated Ringer's 1,000 mls @ 80 mls/hr 08/24/20 21:00 08/26/20 00:31 Lr IVCONT 80 mls/hr .[id number] JAY Administration Promethazine HCl 12.5 mg/ 50.5 mls @ 202 mls/hr 08/25/20 12:18 08/25/20 16:37 Sodium Chloride IV Infused ONCE PRN Infusion Nausea and Vomiting Morphine Sulfate 3 mg 08/24/20 20:45 08/26/20 03:57 Morphine Sulfate 4 Mg/Ml Cartridge IVPUSH 3 mg Q3H PRN Administration Pain, Severe (Pain Scale 7-10) Ondansetron HCl 4 mg 08/24/20 20:45 08/25/20 09:32 Ondansetron Hcl 4 Mg/2 Ml Vial IVPUSH 4 mg Q8H PRN Administration nausea Ondansetron HCl 4 mg 08/25/20 12:18 Ondansetron Hcl 4 Mg/2 Ml Vial IVPUSH ONCE PRN Nausea and Vomiting Oxycodone HCl 10 mg 08/25/20 17:20 08/26/20 07:21 Oxycodone Hcl Immed Release 5 Mg Tablet PO 10 mg Q4H PRN Administration Pain, Moderate (Pain Scale 4-6 Sodium Chloride 3 ml 08/25/20 00:00 08/26/20 07:19 0.9 % Sodium Chloride Flush 3 Ml Syringe IVFLUSH Not Given QSHIFT JAY Time Spent With Patient Time: Total time spent is greater than 50% in coordination of care (as documented) at patient's floor/unit and/or counseling patient: Time with patient: 15 - 24 minutes
[2020-08-26] MEDS: ondansetron HCL 4 MG/2 ML VIAL IVPUSH (10:07)
[2020-08-26 12:00] VITALS: BP 145/67; PULSE 61; RESP 16; TEMP 36.4; O2SAT 98
[2020-08-26 12:18] VITALS: BP 145/67; PULSE 61; RESP 16; TEMP 36.4; O2SAT 98; O2SAT 99
--- NOTE | 2020-08-26 12:45 | PM.EVENT ---
Event Note Date of Service: 08/26/20 Event Note: feels well good pain control stable VS abd soft tolerating diet well says he feels ready to go home dc instructions given
--- NOTE | 2020-08-27 16:46 | PM.DS ---
DS: Providers Provider Date of Service: 08/27/20 Date of admission: 08/24/20 20:35 Primary care physician: None Physician DS: Diagnosis Discharge Diagnosis (1) Acute appendicitis: Status: Acute Problem details: 25M who was admitted via the ED on the night of August 24, 2020 for RLQ pain, His CT was c/w acute appendicitis. He was admitted and started on IV abx. He underwent lap appendectomy on August 25, 2020. He tolerated this well. He was started on clear liquids postop. He continued to do well and was on regular diet on POD 1. He remained comfortable, and afebrile with good GI function. He was discharged on August 26, 2020. DS: Medications Discharge Medications Home Medications: Previous Rx's Medication Instructions Recorded ibuprofen 600 mg PO Q6H PRN #30 tab 08/26/20 oxycodone-acetaminophen [Percocet] 1 - 2 tab PO Q4-6H PRN #30 tab 08/26/20 DS: Summary Time Spent with Patient Time attestation: Total time spent providing and/or coordinating discharge services: 30 minutes Discharge coordination time: Less than 30 minutes Quality: Stroke Does the patient have a stroke diagnosis?: No Physical Exam Vital Signs: Vital Signs: Last Vital Signs Temp 97.5 F 08/26/20 12:18 Pulse 61 08/26/20 12:18 Resp 16 08/26/20 12:18 BP 145/67 H 08/26/20 12:18 Pulse Ox 99 08/26/20 12:18 Body Mass Index 25.7 Const: General: comfortable and no acute distress Orientation/consciousness: patient oriented x3 Neck: Neck: Yes no lymphadenopathy Resp: Auscultation: clear to auscultation bilaterally Cardio: Rhythm: regular rhythm GI: Other: incisions clean and dry Palpation (GI): Soft to palpation, nontender and no guarding Neuro: General: patient oriented x3 DS: Data Data Completed and Pending Completed studies during hospitalization [Text1]: Pending at discharge 08/25/20 13:50 Surgical [PTH] Routine Labs on day of discharge: Preliminary micro results at discharge 08/24/20 18:59 Blood Culture - Preliminary Blood - Venous No growth after 48 hours. 08/24/20 18:46 Blood Culture - Preliminary Blood - Venous No growth after 48 hours. Discharge Plan Discharge Patient Disposition: Home, Self-Care Discharge Diagnosis: acute appendicitis Referrals: Rhett Vitale MD [Physician] - 1 Week Physician,None [Primary Care Provider] - 1 Week Discharge Medications: New oxycodone-acetaminophen [Percocet] 5-325 mg tablet 1 - 2 tab PO Q4-6H PRN (Reason: pain) Qty: 30 RF: 0 ibuprofen 600 mg tablet 600 mg PO Q6H PRN (Reason: pain) Qty: 30 RF: 0 Discharge Orders: Discharge Order (Routine); Ordered 08/26/20 Ordered By: Rhett Vitale Activity on Discharge: No heavy lifting Stand Alone Forms: Patient Portal Discharge page Activity Restrictions/Additional Instructions: If the incision area is tender, you may apply an ice pack for short intervals (No more than 20 minutes on, followed by at least 20 minutes off). Do not apply heat. Do not use creams, lotions, or topical antibiotics unless instructed to do so by your surgeon. These can cause infection or allergic reaction. OK to shower OK to change dressings daily with BandAids No lifting more than 15 lb No strenuous activities Call the office for follow-up in 2 weeks - with Dr. Vitale Call Your Doctor If: -Your temperature exceeds 101.5? F -You experience excessive pain or swelling -You have an unexpected reaction to medication -You have excessive bleeding -You experience continued vomiting/nausea -Your incision begins to separate -Your incision shows signs of infection such as increased redness, swelling, excessive pain, drainage (light blood or clear fluid is normal) or heat Care Plan Goals: pain mgt Health Concerns: pain control Plan of Treatment: no lifting wound care Assessment: doing well postop Discharge Date/Time: 08/26/20 13:28
== END 2020-08-26 13:28 | disposition home or self-care (01) | DRG 225 ==
LOC: HO.ED 19:57 → HO.S3 21:06
PROVIDERS: Nurse Practitioner Family; Admitting Provider Surgery; Emergency Provider Internal Medicine; Visit Provider Surgery
PROC: 0DTJ4ZZ Resection of Appendix, Percutaneous Endoscopic Approach (ICD-10-PCS; CPT 44970; principal; 2020-08-25 13:00)
DX: K35.80 Unspecified acute appendicitis (principal); D72.829 Elevated white blood cell count, unspecified; Z20.822 Contact with and (suspected) exposure to COVID-19
CPT/HCPCS: 44970; 36415; 74177; 80048; 80053; 80076; 81003; 83605; 85025; 85027; 87040; 87635; 88304; 96365; 99024; 99285; J1100; J2250; J2270; J2405; J2543; J2550; J3010; Q9967

== ENCOUNTER → 2020-09-08 09:04 | Outpatient (BNVA) | payer BC, SELFPAY | PROVIDERS: Visit Provider Surgery ==